=== PATIENT | male | born 1975 | race Caucasian/White ===

== ENCOUNTER → 2021-10-14 | Outpatient (CLI) | payer OTHER ==
[~2021-10-14] MED LIST: HYDROCODON-ACE1 EAC2 PO; IBU-200200 MG PO; MIRTAZAPINE30 MG PO; OLANZAPINE5 MG PO; PERCOCET 10-321 EACH PO; TORADOL 10 MG T10 MG PO; XANAX0.5 MG PO; ZYPREXA7.5 MG PO
== END ==
LOC: SLEEP 21:30
DX: G47.33 Obstructive sleep apnea (adult) (pediatric) (principal); T50.905A Adverse effect of unspecified drugs, medicaments and biological substances, initial encounter; G47.37 Central sleep apnea in conditions classified elsewhere
CPT/HCPCS: 95811